=== PATIENT | female | born 1960 | race Two or more races ===

== ENCOUNTER 2020-04-07 14:04 | Emergency (ER) | payer OTHER ==
--- NOTE | 2020-04-07 14:14 | ER Document Report ---
ED Medical Screen (RME) - General Chief Complaint: Weakness Stated Complaint: WEAKNESS,DIZZINESS,VOMITING Time Seen by Provider: 04/07/20 14:06 Notes: HPI: History is limited by patient condition. Additional history from . Patient brought in for nonresponsiveness. Patient is nonverbal will not answer questions verbally to me. Will not follow direction. indicates patient woke up this morning complaining of dizziness throughout 1 time. Told him that she was very dizzy and could not walk. States this occurred around 5 AM she has not been acting normally throughout the morning. Did not eat breakfast would not eat lunch continues to complain of dizziness and that she could not walk. PHYSICAL EXAMINATION: Limited exam secondary to patient condition and positioning. Patient opens eyes but will not respond verbally to any questioning. She will not follow any commands to move extremities. Lung sounds are clear to auscultation, regular rate and rhythm, Accu-Chek 131. Patient sent to CT for stroke evaluation. Notified charge nurse of need for bed I have greeted and performed a rapid initial assessment of this patient. A comprehensive ED assessment and evaluation of the patient, analysis of test results and completion of medical decision making process will be conducted by an additional ED providers.
--- NOTE | 2020-04-07 14:28 | RADIOLOGY REPORT (SQ) ---
EXAM DESCRIPTION: CT HEAD WITHOUT IMAGES COMPLETED DATE/TIME: 04/07/2020 2:18 pm REASON FOR STUDY: stroke COMPARISON: None. TECHNIQUE: Axial images acquired through the brain without intravenous contrast. Images reviewed wit h bone, brain and subdural windows. Images stored on PACS. All CT scanners at this facility use dose modulation, iterative reconstruction, and/or weight based d osing when appropriate to reduce radiation dose to as low as reasonably achievable (ALARA). [facility]: Dose Right [facility]: CareDose [facility]: Dose Right [facility]: Teradose 4D [facility]: ComAbility RADIATION DOSE: CT Rad equipment meets quality standard of care and radiation dose reduction techniq ues were employed. CTDIvol: 53.2 mGy. DLP: 1017 mGy-cm.. LIMITATIONS: None. FINDINGS: VENTRICLES: Normal size and contour. CEREBRUM: No masses. No hemorrhage. No midline shift. Age appropriate white matter. No evidence for a cute infarction. CEREBELLUM: No masses. No hemorrhage. No alteration of density. No evidence for acute infarction. EXTRA-AXIAL SPACES: No fluid collections. ORBITS AND GLOBE: No intra- or extraconal masses. Normal contour of globe without masses. CALVARIUM: No fracture. PARANASAL SINUSES: No fluid or mucosal thickening. SOFT TISSUES: No mass or hematoma. OTHER: No other significant finding. IMPRESSION: NO ACUTE INTRACRANIAL FINDINGS. EVIDENCE OF ACUTE STROKE: NO. TECHNICAL DOCUMENTATION: JOB ID: [id number] [place]-72 Quality ID # [id number]: Final reports with documentation of one or more dose reduction techniques (e.g., Au tomated exposure control, adjustment of the mA and/or kV according to patient size, use of iterative reconstruction technique) 2010 [employer]- All Rights Reserved Reading location - IP/workstation name: [email or web address]
--- NOTE | 2020-04-07 14:31 | RADIOLOGY REPORT (SQ) ---
EXAM DESCRIPTION: CHEST SINGLE VIEW IMAGES COMPLETED DATE/TIME: 04/07/2020 2:24 pm REASON FOR STUDY: stroke COMPARISON: None. TECHNIQUE: Single frontal radiographic view of the chest acquired. NUMBER OF VIEWS: One view. LIMITATIONS: None. FINDINGS: LUNGS AND PLEURA: No pneumothorax. No consolidation or pleural effusion. MEDIASTINUM AND HILAR STRUCTURES: No contour abnormalities. HEART AND VASCULAR STRUCTURES: Heart normal size. BONES: No acute findings. HARDWARE: None in the chest. OTHER: No other significant finding. IMPRESSION: NO ACUTE FINDINGS. TECHNICAL DOCUMENTATION: JOB ID: [id number] [place]-72 2010 [employer]- All Rights Reserved Reading location - IP/workstation name: [email or web address]
[2020-04-07 14:45] LABS: INTERNATIONAL RATION (INR) 0.92; PROTHROMBIN TIME 12.6 SEC (11.4-15.4)
--- NOTE | 2020-04-07 14:49 | ER Document Report ---
ED General <KHANG AYALA - Last Filed: 04/07/20 16:00> <EUFEMIA HENDRIX JR - Last Filed: 04/07/20 18:43> - General Chief Complaint: Weakness Stated Complaint: WEAKNESS,DIZZINESS,VOMITING Time Seen by Provider: 04/07/20 14:06 - HPI Notes: Chief complaint: Altered mental status and vomiting History of present illness: 60-year-old female with history of cigarette smoking and hypertension but no known prior history of stroke or TIA brought to the emergency department by her via private vehicle for evaluation of altered mental status. Patient was reportedly well when she went to bed last night around 10 PM. This morning she awakened around 5 AM and complained of severe headache and dizziness. He subsequently vomited several times. thought she had vertigo and she went back to the bedroom and went to sleep. She awakened around noon. At that time she was unsteady and unable to walk without assistance. She was talking at that time. He states she was unable to use her right arm. He placed her in a car and brought her here. Blood sugar at triage was 135. Patient is unable to relate her own history at this time. (KHANG AYALA) - Related Data Allergies/Adverse Reactions: No Known Allergies Allergy (Verified 04/07/20 16:29) Past Medical History - General Information source: Relative Cannot obtain history due to: Altered mental status - Social History Smoking Status: Current Every Day Smoker Frequency of alcohol use: None Drug Abuse: None Family History: Reviewed & Not Pertinent <KHANG AYALA - Last Filed: 04/07/20 16:00> Review of Systems - Review of Systems -: Yes ROS unobtainable due to patient's medical condition <KHANG AYALA - Last Filed: 04/07/20 16:00> Physical Exam <KHANG AYALA - Last Filed: 04/07/20 16:00> - Vital signs Vitals: Temp Pulse Resp BP Pulse Ox 97.9 F 77 18 143/101 H 97 04/07/20 14:09 04/07/20 14:09 04/07/20 14:09 04/07/20 14:09 04/07/20 14:09 - Notes Notes: GENERAL: Slender female approximately stated age nonverbal with eyes closed SKIN: Good turgor no rashes. HEAD: Normocephalic atraumatic. EYES: Pupils equal and reactive. Gaze is conjugate. Eyes open on verbal command. EARS: CANALS AND TMS CLEAR. NOSE: CLEAR. MOUTH: Moist mucosa. Good dentition. No stridor or edema. No drooling. Throat: Gag reflex intact. NECK: Supple. No masses or thyromegaly. No adenopathy. Carotids 2+ without bruits. No JVD. BACK: Symmetrical without tenderness. CHEST: Respirations unlabored. Breath sounds clear and symmetrical. HEART: Regular rhythm. No murmur gallop or rub. ABDOMEN: Soft nontender without masses, organomegaly or rebound. Bowel sounds normally active. No bruits. GENITALIA: Normal female. EXTREMITIES: No edema. No calf tenderness. Cap refill less than 1.5 seconds. Dorsalis pedis and posterior tibial pulses 3+ and symmetrical. NEUROLOGICAL: GCS 10. License And Permit Specialist weakly with left hand verbal command. Eyes open on verbal command. Patient is not speaking. Flaccid paralysis right upper and l ower extremity. Decreased sensation entire right side. Patient will lift left upper and lower extremity slightly off the bed. Mute plantar response bilaterally. Deep tendon reflexes 1+ symmetrical. (KHANG AYALA) Course - Laboratory Result Diagrams: 04/07/20 12:48 04/07/20 12:48 <KHANG AYALA - Last Filed: 04/07/20 16:00> - Laboratory Result Diagrams: 04/07/20 12:48 04/07/20 12:48 <EUFEMIA HENDRIX JR - Last Filed: 04/07/20 18:43> - Re-evaluation Re-evalutation: 04/07/20 16:00 CTA of head and neck reported as negative for significant vascular lesions per radiologist. She does have findings suggestive of an empty sella syndrome. Current findings are reviewed with Dr. Sanz's with stroke center at [facility] by telephone. He does not feel that acute vascular intervention is appropriate at this time. He recommends that we get a stat MRI and communicate findings to him as soon as this is available. He thinks it is possible this lady has had a seizure may have a Justin's paralysis related to the seizure. If the MRI is negative he would recommend local admission. If the MRI shows large ischemic stroke he would still entertain possibility of transfer of the patient. I question the patient and her regarding any past history of seizure activity and they indicate no prior history of seizures. The further states that he has not observed any tonic-clonic movements or involuntary movements at any time during his observation of the patient prior to arrival here. Further care of the patient is going to be turned over to Dr. Hendrix at 1600 hrs. (KHANG AYALA) - Vital Signs Vital signs: Temp Pulse Resp BP Pulse Ox 97.9 F 58 L 11 L 138/81 H 98 04/07/20 14:09 04/07/20 17:44 04/07/20 17:44 04/07/20 17:44 04/07/20 17:44 04/07/20 15:08 Initial findings are strongly suggestive of large vessel occlusion. Last known well time is to be around 10 PM last night. Initial noncontrast head CT is negative. Blood pressures currently within normal range. I do not feel patient is a suitable candidate for lytics. Discussed with stroke attending validation analyst at [facility] Dr. Gutierrez and he is in agreement. I have requested a CTA of head and neck. I have requested transfer to [facility]. Dr. Sanz's indicates that he will review the CTA head and neck and contact me regarding further intervention and transport. I have advised patient of current findings and plan for expedited transfer of the patient to [facility] in anticipation of interventional vascular radiology procedure. EMTALA form completed. 04/07/20 15:37 Nursing staff reports patient is significantly improved. Reevaluated the patient at this time. She now has eyes open spontaneously and is speaking without any significant impairment appropriately oriented x3. She has minimal movement of fingers on her right hand but otherwise no motor function in the right upper extremity. The right lower extremity remains flaccid. She reports sensory deficit over the right upper and lower extremity. She reports no facial sensory deficit. She is able to seed cone picker her left arm and lips without drift for 5 seconds. She still has some difficulty picking up the left lower extremity. We await review of CT a head/neck images by radiology and stroke attending at this time. (KHANG AYALA) - Laboratory Laboratory results interpreted by me: 04/07/20 04/07/20 04/07/20 12:48 12:48 14:37 APTT 20.5 L Chloride 108 H BUN 22 H Glucose 134 H Urine Protein 100 H Urine Ketones 20 H Urine Urobilinogen 2.0 H Urine Ascorbic Acid 40 H - Diagnostic Test Radiology results interpreted by me: 04/07/20 15:07 Per radiologist: 1. Normal noncontrast head CT 2. Normal chest x-ray (KHANG AYALA) - EKG Interpretation by Me Additional EKG results interpreted by me: 04/07/20 15:06 Twelve-lead EKG reviewed by me contemporaneously: 1421 hrs. Indication for study: CVA Rhythm: Normal sinus rhythm Rate: 68 Intervals: Normal QRS axis: +[address]/T wave changes: None Comparison with prior tracing: None Interpretation: Normal sinus rhythm (KHANG AYALA) Critical Care Note - Critical Care Note Total time excluding time spent on procedures (mins): 60 - Stroke protocol initiated findings suggestive of acute LVO stroke <KHANG AYALA - Last Filed: 04/07/20 16:00> <EUFEMIA HENDRIX JR - Last Filed: 04/07/20 18:43> - Critical Care Note Comments: I spoke with Ray at transfer center around 1755 and again with [facility] at 1811 who advised this is not a code stroke but they will except for neurology and Ray at the transfer center advised that he will call us back with hospitalist for bed.I spoke with Regina Chavis at 1840 who accepts care of pt..with neurology consult. (EUFEMIA HENDRIX JR) Discharge <KHANG AYALA - Last Filed: 04/07/20 16:00> <EUFEMIA HENDRIX JR - Last Filed: 04/07/20 18:43> - Discharge Clinical Impression: Right hemiparesis Altered mental status Qualifiers: Altered mental status type: transient alteration of awareness Qualified Code(s): R40.4 - Transient alteration of awareness Condition: Stable Disposition: [facility] Additional Instructions: Transfer this patient to [facility] per Dr. Chavis.
[2020-04-07 14:57] LABS: ALBUMIN 4.9 g/dL (3.5-5.0); ALKALINE PHOSPHATASE 67 U/L (38-126); ANION GAP 9 (5-19); ASPARTATE AMINO TRANSFERASE 28 U/L (14-36); BILIRUBIN,DIRECT 0.4 mg/dL (0.0-0.4); BILIRUBIN,TOTAL 0.7 mg/dL (0.2-1.3); BLOOD UREA NITROGEN 22 mg/dL (7-20); CALCIUM 9.8 mg/dL (8.4-10.2); CARBON DIOXIDE 25 mmol/L (22-30); CHLORIDE 108 mmol/L (98-107); CREATINE KINASE 76 U/L (30-135); GLUCOSE 134 mg/dL (75-110); POTASSIUM 4.6 mmol/L (3.6-5.0); TOTAL PROTEIN 7.6 g/dL (6.3-8.2)
[2020-04-07 15:00] LABS: APPEARANCE,URINE SLIGHTLY-CLOUDY; BILIRUBIN,URINE NEGATIVE (NEGATIVE); COLOR,URINE AMBER; GLUCOSE, URINE NEGATIVE (NEGATIVE); KETONES,URINE 20 mg/dL (NEGATIVE); LEUKOCYTE ESTERASE,URINE NEGATIVE (NEGATIVE); NITRITE,URINE NEGATIVE (NEGATIVE); PROTEIN,URINE 100 mg/dL (NEGATIVE); URINE SPECIFIC GRAVITY 1.025
[2020-04-07 15:02] LABS: PARTIAL THROMBOPLASTIN TIME 20.5 SEC (23.5-35.8)
[2020-04-07 15:06] LABS: ABSOLUTE LYMPHOCYTES (AUTO) 1.8 10^3/uL (0.5-4.7); ABSOLUTE MONOCYTES (AUTO) 0.3 10^3/uL (0.1-1.4); ABSOLUTE NEUT (AUTO) 5.7 10^3/uL (1.7-8.2); BASOPHILS % (AUTO) 0.3 % (0-2); EOSINOPHILS % (AUTO) 0.5 % (0-6); HEMATOCRIT 40.9 % (36.0-47.0); LYMPHOCYTES % (AUTO) 22.8 % (13-45); MEAN CORPUSCULAR HEMOGLOBIN 31.8 pg (27.0-33.4); MEAN CORPUSCULAR HGB CONC 34.1 g/dL (32.0-36.0); MEAN CORPUSCULAR VOLUME 93 fl (80-97); MONOCYTES % (AUTO) 3.3 % (3-13); RED BLOOD COUNT 4.38 10^6/uL (3.72-5.28); RED CELL DISTRIBUTION WIDTH 13.7 % (11.5-14.0); SEGMENTED NEUTROPHILS % (AUTO) 73.1 % (42-78); TOTAL CELLS COUNTED % (AUTO) 100 %; WHITE BLOOD COUNT 7.8 10^3/uL (4.0-10.5)
[2020-04-07 15:09] LABS: CREATINE KINASE MB 1.23 ng/mL (<4.55)
[2020-04-07 15:11] LABS: TROPONIN I < 0.012 ng/mL
[2020-04-07 15:29] LABS: PLATELET COUNT 306 10^3/uL (150-450)
--- NOTE | 2020-04-07 15:40 | RADIOLOGY REPORT (SQ) ---
EXAM DESCRIPTION: CTA NECK; CTA HEAD IMAGES COMPLETED DATE/TIME: 04/07/2020 3:06 pm REASON FOR STUDY: cva; right hemiparesis COMPARISON: None. TECHNIQUE: Axial dynamic scanning technique with dynamic contrast enhancement through the extra-cran ial carotid and vertebral arteries and through the cerebral vessels. Multiplanar reconstruction. 3 -D MIPS and Volume-rendered images acquired at the workstation and saved to PACS. Images are review ed in soft tissue, bone, lung windows. All CT scanners at this facility use dose modulation, iterative reconstruction, and/or weight based d osing when appropriate to reduce radiation dose to as low as reasonably achievable (ALARA). [facility]: Dose Right [facility]: CareDose [facility]: Dose Right [facility]: Teradose 4D [facility]: [employer] CONTRAST TYPE AND DOSE: contrast/concentration: Isovue 350.00 mmol/ml; Total Contrast Delivered: 70. 0 ml; Total Saline Delivered: 75.0 ml RENAL FUNCTION: Not available. LIMITATIONS: None. FINDINGS: CTA NECK: AORTIC ARCH: Normal three-vessel origin. Bilateral subclavian arteries are patent. No dissection. RIGHT CAROTIDS: Patent common, internal and external carotid arteries without suggestion of significa nt stenosis or irregular plaque. No dissection. RIGHT VERTEBRAL: Patent. No dissection. LEFT CAROTIDS: Patent common, internal and external carotid arteries without suggestion of significan t stenosis or irregular plaque. No dissection. LEFT VERTEBRAL: Patent. No dissection. OTHER: No other significant finding. OTHER: 3-D reconstructions confirm findings. CTA HEAD: [place]: The anterior, middle, posterior cerebral arteries are all patent. No evidence of a neurysm or focal stenosis. POSTERIOR CIRCULATION: The distal vertebral arteries are patent as is the basilar artery. No aneurysm . BRAIN: No gross enhancing lesions as visualized. Incidentally noted is a large expansile CSF collect ion in the sella turcica. BONES: Intact as visualized. SINUSES: No fluid or mucosal thickening. OTHER: No other significant finding. IMPRESSION: 1. NORMAL CTA OF THE EXTRA-CRANIAL CAROTID AND VERTEBRAL ARTERIES. 2. NORMAL CTA OF THE HEAD. 3. LARGE EXPANSILE CSF COLLECTION IN THE SELLA TURCICA. THIS MAY REPRESENT AN INCIDENTAL LARGE EMPTY SELLA. MAY CONSIDER FOLLOW-UP OUTPATIENT MRI OF THE PITUITARY. COMMENT: Quality ID #[id number]: Measurements of distal internal carotid diameter were used as the denomina tor for stenosis measurement. TECHNICAL DOCUMENTATION: JOB ID: [id number] Quality ID # 436: Final reports with documentation of one or more dose reduction techniques (e.g., Au tomated exposure control, adjustment of the mA and/or kV according to patient size, use of iterative reconstruction technique) 2010 [employer]- All Rights Reserved Reading location - IP/workstation name: [email or web address]
--- NOTE | 2020-04-07 15:40 | RADIOLOGY REPORT (SQ) ---
EXAM DESCRIPTION: CTA NECK; CTA HEAD IMAGES COMPLETED DATE/TIME: 04/07/2020 3:06 pm REASON FOR STUDY: cva; right hemiparesis COMPARISON: None. TECHNIQUE: Axial dynamic scanning technique with dynamic contrast enhancement through the extra-cran ial carotid and vertebral arteries and through the cerebral vessels. Multiplanar reconstruction. 3 -D MIPS and Volume-rendered images acquired at the workstation and saved to PACS. Images are review ed in soft tissue, bone, lung windows. All CT scanners at this facility use dose modulation, iterative reconstruction, and/or weight based d osing when appropriate to reduce radiation dose to as low as reasonably achievable (ALARA). [facility]: Dose Right [facility]: CareDose [facility]: Dose Right [facility]: Teradose 4D [facility]: [employer] CONTRAST TYPE AND DOSE: contrast/concentration: Isovue 350.00 mmol/ml; Total Contrast Delivered: 70. 0 ml; Total Saline Delivered: 75.0 ml RENAL FUNCTION: Not available. LIMITATIONS: None. FINDINGS: CTA NECK: AORTIC ARCH: Normal three-vessel origin. Bilateral subclavian arteries are patent. No dissection. RIGHT CAROTIDS: Patent common, internal and external carotid arteries without suggestion of significa nt stenosis or irregular plaque. No dissection. RIGHT VERTEBRAL: Patent. No dissection. LEFT CAROTIDS: Patent common, internal and external carotid arteries without suggestion of significan t stenosis or irregular plaque. No dissection. LEFT VERTEBRAL: Patent. No dissection. OTHER: No other significant finding. OTHER: 3-D reconstructions confirm findings. CTA HEAD: [place]: The anterior, middle, posterior cerebral arteries are all patent. No evidence of a neurysm or focal stenosis. POSTERIOR CIRCULATION: The distal vertebral arteries are patent as is the basilar artery. No aneurysm . BRAIN: No gross enhancing lesions as visualized. Incidentally noted is a large expansile CSF collect ion in the sella turcica. BONES: Intact as visualized. SINUSES: No fluid or mucosal thickening. OTHER: No other significant finding. IMPRESSION: 1. NORMAL CTA OF THE EXTRA-CRANIAL CAROTID AND VERTEBRAL ARTERIES. 2. NORMAL CTA OF THE HEAD. 3. LARGE EXPANSILE CSF COLLECTION IN THE SELLA TURCICA. THIS MAY REPRESENT AN INCIDENTAL LARGE EMPTY SELLA. MAY CONSIDER FOLLOW-UP OUTPATIENT MRI OF THE PITUITARY. COMMENT: Quality ID #[id number]: Measurements of distal internal carotid diameter were used as the denomina tor for stenosis measurement. TECHNICAL DOCUMENTATION: JOB ID: [id number] Quality ID # 436: Final reports with documentation of one or more dose reduction techniques (e.g., Au tomated exposure control, adjustment of the mA and/or kV according to patient size, use of iterative reconstruction technique) 2010 [employer]- All Rights Reserved Reading location - IP/workstation name: [email or web address]
[2020-04-07] MEDS ORDERED: ONDANSETRON HCL INJ/PF 4 MG/2 ML SDV IV ONE (15:59)
--- NOTE | 2020-04-07 17:44 | RADIOLOGY REPORT (SQ) ---
EXAM DESCRIPTION: MRI HEAD WITHOUT IMAGES COMPLETED DATE/TIME: 04/07/2020 5:21 pm REASON FOR STUDY: right hemiparesis, normal head CT COMPARISON: None. TECHNIQUE: Multiplanar imaging includes non-contrasted T1, T2, FLAIR, and diffusion with ADC map seq uences. Images stored on PACS. LIMITATIONS: None. FINDINGS: ANATOMY: Normal vascular flow voids. Pituitary fossa shows a 2 cm cystic structure, possib le Rathke's cleft cyst. No normal pituitary gland or stalk is identified. CSF SPACES: Normal in size and contour. No hemorrhage. CEREBRUM: Sulci and gyri normal in size and contour. Normal white matter signal on FLAIR imaging. No evidence of hemorrhage, mass, or extraaxial fluid collection. POSTERIOR FOSSA: No signal alteration. No hemorrhage. No edema, masses or mass effect. Internal haley tory canals, cerebello-pontine angles, mastoids normal. DIFFUSION IMAGING: Negative for acute or sub-acute infarction. ORBITS: No masses. Globes normal. PARANASAL SINUSES: No fluid levels. Mucosa normal. OTHER: No other significant finding. 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 No normal pituitary gland or stalk is identified. EVIDENCE OF ACUTE STROKE: NO. TECHNICAL DOCUMENTATION: JOB ID: [id number] [place]-72 2010 [employer]- All Rights Reserved Reading location - IP/workstation name: [email or web address]
[2020-04-07 18:44] LABS: URINE AMPHETAMINES SCREEN NEGATIVE; URINE BARBITURATES SCREEN NEGATIVE; URINE BENZODIAZEPINES SCREEN NEGATIVE; URINE COCAINE SCREEN NEGATIVE; URINE MARIJUANA (THC) SCREEN NEGATIVE; URINE METHADONE SCREEN NEGATIVE; URINE PHENCYCLIDINE SCREEN NEGATIVE
[2020-04-07] MEDS ORDERED: MECLIZINE HCL 25 MG TABLET PO ONE (19:56)
--- NOTE | 2020-04-07 21:49 | EKG REPORT ---
SEVERITY:- BORDERLINE ECG - SINUS RHYTHM PROBABLE LEFT ATRIAL ABNORMALITY BORDERLINE T ABNORMALITIES, ANT-LAT LEADS : Confirmed by: Fiorella Logan MD 07-Apr-2020 21:49:14
[2020-04-07] MEDS ORDERED: NORMAL SALINE 1000 ML 1,000 ML IV ONE (23:09)
[2020-04-08 00:07] VITALS: BP 121/79
== END 2020-04-07 23:45 | disposition short-term general hospital (02) ==
LOC: ER 14:04
DX: G81.01 Flaccid hemiplegia affecting right dominant side (principal); R40.4 Transient alteration of awareness; F17.210 Nicotine dependence, cigarettes, uncomplicated; I10 Essential (primary) hypertension; R51 Headache; R42 Dizziness and giddiness; R11.10 Vomiting, unspecified; R20.9 Unspecified disturbances of skin sensation
CPT/HCPCS: 93005; 99291; 96360; 36415; 82553; 82962; 82550; 85025; 85610; 85730; 80053; 81001; 84484; 80307; 70551; 71045; 70450; 70496; 70498; 93010; J2405; J7030